=== PATIENT | female | born 1975 | race African-American/Black ===

== ENCOUNTER 2020-12-07 12:55 | Emergency (ER) | payer OTHER ==
[2020-12-07 13:19] VITALS: BP 128/85; PULSE 67; TEMP 97.8; BMI 31.6
== END 2020-12-07 14:00 | disposition home or self-care (01) ==
LOC: JERFT 12:55 → JER 12:55 → JERFT 14:00
DX: S62.655A Nondisplaced fracture of middle phalanx of left ring finger, initial encounter for closed fracture (principal)
CPT/HCPCS: 73130-TC-LT-FY; 99283-25

== ENCOUNTER 2023-07-21 20:04 | Emergency (ER) | payer OTHER ==
[2023-07-21 20:09] VITALS: BP 118/83; PULSE 91; RESP 18; TEMP 98.6; BMI 31.9
== END 2023-07-21 21:29 | disposition home or self-care (01) ==
LOC: JERFT 20:04
DX: S93.401A Sprain of unspecified ligament of right ankle, initial encounter (principal); X50.1XXA Overexertion from prolonged static or awkward postures, initial encounter; Y92.9 Unspecified place or not applicable
CPT/HCPCS: 73140-TC-RT-FY; 73610-TC-RT-FY; 99283-25